=== PATIENT | female | born 1970 | race Two or more races ===

== ENCOUNTER 2019-11-07 12:56 | Outpatient (CLI) | payer MEDICAID, OTHER ==
[~2019-11-07 12:56] MED LIST: OMEPRAZOLE40 M1 ORAL; PROBIOTIC1 EAC5 PO; no medication
--- NOTE | 2019-11-07 13:30 | General Progress Note ---
Assessment/Plan Assessment/Plan: s/p EUS SUMMARY OF FINDINGS: Mildly dilated common bile duct with a maximum diameter of 8 mm tapering down into 3 mm at the ampulla without any obvious mass. No obvious pancreatic duct dilatation. Gallbladder was not seen. No obvious lymphadenopathy. RECOMMENDATIONS: The patient is to be monitored at this time. There was no evidence of any obvious ampullary mass or common bile duct stone. We will recommend repeat imaging studies in 3 months now c/o abd pain and rectal bleed plan colonoscopy Subjective ROS Limited/Unobtainable: Yes Allergies: Coded Allergies: Dust (Verified Allergy, Severe, Cough/Shortness of breath , 10/25/19) Seasonal Allergies Objective General Appearance: alert EENT: normal ENT inspection Neck: normal alignment Cardiovascular: normal rate Respiratory/Chest: lungs clear Abdomen: normal bowel sounds, non tender, soft Extremities: non-tender Dougie Webb MD Nov 07, 2019 13:30
== END 2019-11-07 14:56 | disposition home or self-care (01) ==
LOC: PAN 12:56
DX: R10.9 Unspecified abdominal pain (principal); K62.5 Hemorrhage of anus and rectum
CPT/HCPCS: 99212